=== PATIENT | female | born 1955 | race Caucasian/White ===

== ENCOUNTER 2018-07-11 11:35 | Inpatient (IN) | payer OTHER ==
[2018-07-11] MEDS ORDERED: ALBUTEROL 3 ML DEYVIAL IH PRN (14:40)
[2018-07-11] MEDS ORDERED: NS 1,000 ML IV SCH (14:40)
[2018-07-11] MEDS ORDERED: ONDANSETRON 4 MG/2 ML VIAL IVP PRN (18:17)
[2018-07-11] MEDS ORDERED: ONDANSETRON DISINTEGRATING 4 MG TAB PO PRN (18:17)
[2018-07-11] MEDS ORDERED: D50W 25 GM/50 ML SYR IVP PRN (18:28)
[2018-07-11] MEDS ORDERED: BENZONATATE 100 MG CAP PO PRN (19:55)
--- NOTE | 2018-07-11 20:03 | PDGENHP ---
History and Physical - Chief Complaint cough - History of Present Illness Please see paper H and P by Elizabeth Desir NP History Information - Allergies/Home Medication List Allergies/Adverse Reactions: acetaminophen [From Percocet] Allergy (Verified 07/11/18 17:20) Hives amoxicillin [From Augmentin] Allergy (Verified 07/11/18 17:20) Hypotension aspirin [From Percodan] Allergy (Verified 07/11/18 17:20) Hives clavulanic acid [From Augmentin] Allergy (Verified 07/11/18 17:20) Hypotension latanoprost [From Xalatan] Allergy (Verified 07/11/18 17:20) Hypotension nickel Allergy (Verified 07/11/18 17:21) Unknown oxycodone [From Percocet] Allergy (Verified 07/11/18 17:20) Hives Home Medications: Acetaminophen [Tylenol ES 500 mg (*)] 500 mg PO Q6 PRN 07/11/18 [Last Taken Unknown] Alclometasone Dipropionate 1 shannon TP DAILY PRN 07/11/18 [Last Taken Unknown] Ascorbic Acid [Vitamin C 500 mg (*)] 1,000 mg PO BID 07/11/18 [Last Taken ] Cholecalciferol Vit D3 [Vitamin D3 (*)] 1,000 units PO DAILY 07/11/18 [Last Taken 07/10/18] Exenatide Microspheres [Bydureon Pen] 2 mg SQ WE 07/11/18 [Last Taken 07/04/18] Herbals/Supplements -Info Only 1 ea PO DAILY 07/11/18 [Last Taken Unknown] Hydrochlorothiazide [HCTZ (*)] 25 mg PO DAILY 07/11/18 [Last Taken 07/10/18] Insulin Glargine,Hum.rec.anlog [Micah Elizondo] 72 unit SQ HS 07/11/18 [Last Taken 07/10/18] Insulin Lispro [humALOG LISPRO 100 units/ml (*)] 0 - 19 unit SC TIDMEAL [Last Taken 07/09/18] Ketoconazole 2% [Nizoral 2% Cream (*)] 1 shannon TP DAILY PRN 07/11/18 [Last Taken Unknown] Levothyroxine [Synthroid 50 mcg (*)] 50 mcg PO DAILY06 07/11/18 [Last Taken ] Lisinopril [Zestril 40 mg (*)] 40 mg PO HS 07/11/18 [Last Taken 07/10/18] Meloxicam 7.5 mg PO BID 07/11/18 [Last Taken 07/10/18] Metformin HCl [Metformin 1000 mg] 1,000 mg PO BID 07/11/18 [Last Taken 07/10/18] Omeprazole 20 mg PO DAILY 07/11/18 [Last Taken 07/10/18] Polymyxin B Sulfate/Tmp [Polytrim Opht Drops (*)] 1 drops RTEYE HS 07/11/18 [ Last Taken 07/10/18] Simvastatin [Zocor] 20 mg PO HS 07/11/18 [Last Taken 07/10/18] I have personally reviewed and updated: medical history, social history - Past Medical History hypertension, hyperlipidemia Additional medical history: IDDM (Dr Harden) - Family History Positive for: non-pertinent - Social History Alcohol Use: None Drug Use: None Additional social history: Review of Systems Review of Systems: Physical Exam Physical Exam: Temp Pulse Resp BP Pulse Ox 102.4 F H 104 H 19 119/76 85 L 07/11/18 11:35 07/11/18 11:35 07/11/18 11:35 07/11/18 11:35 07/11/18 11:35 Constitutional: other (ill appearing/coughing) Ears, Nose, Mouth, Throat: moist mucous membranes, hearing normal Cardiovascular: regular rate and rhythym, no murmur, rub, or gallop Respiratory: rhonchi, other (decreased BS throughout, no wheezes), No respiratory distress Gastrointestinal: normoactive bowel sounds, soft, non-tender abdomen, No guarding Neurologic: other (grossly intact/non focal) Psychiatric: interacting appropriately, not anxious, not encephalopathic Lab Data & Imaging Review 07/11/18 11:35 07/11/18 11:35 Sodium 138 mEq/L (135-145) 07/11/18 11:35 Potassium 4.6 mEq/L (3.5-5.2) 07/11/18 11:35 Chloride 103 mEq/L (97-110) 07/11/18 11:35 Carbon Dioxide 24 mEq/l (22-31) 07/11/18 11:35 Anion Gap 11 mEq/L (6-14) 07/11/18 11:35 BUN 17 mg/dL (7-23) 07/11/18 11:35 Creatinine 0.9 mg/dL (0.6-1.0) 07/11/18 11:35 Estimated GFR Not Reported 07/11/18 11:35 Glucose 119 mg/dL (70-100) H 07/11/18 11:35 POC Glucose 96 mg/dL (70-100) 07/11/18 18:30 Calcium 8.9 mg/dL (8.5-10.4) 07/11/18 11:35 Nasal Influenza A PCR FLU A DETECTED (NEGATIVE) H 07/11/18 12:39 Nasal Influenza B PCR NEGATIVE FOR FLU B (NEGATIVE) 07/11/18 12:39 Visualized and Interpreted Chest x-ray results: Yes Chest X-Ray results: no infiltrate Assessment & Plan Assessment: Influenza (Acute) -start tamiflu -symptom treatment meds ordered, nebs ordered -IVF as nausea/inadequate po intake IDDM -1/2 dose of nl nightly glargine as poor intake -holding metformin -checking BS, SSI Obesity HTN -holding diuretic -watch BPs closely Hyperlipidemia FULL CODE PCP- Dr Logan, Dr Harden DVT prophy-SCDs Dispo- obs overnt, reassess in AM Plan: Pt was seen, examined, interviewed by myself. I reviewed H and P by Mimi Desir HOST COORDINATOR, agree with findings and plan.
[2018-07-11 20:09] LABS: PLATELET COUNT 214 10^3/uL (150-400)
[2018-07-11] MEDS ORDERED: INSULIN GLARGINE HUM REC ANLOG 72 UNIT SQ SCH (21:00)
[2018-07-11] MEDS ORDERED: INSULIN GLARGINE 100 UNITS/ML UNIT SC ONE (21:00)
[2018-07-11] MEDS: INSULIN REGULAR HUMAN 100 UNIT/ML UNIT SC SCH (21:57)
[2018-07-11] MEDS: guaiFENesin 600 MG TAB.ER PO SCH (22:05)
[2018-07-11] MEDS: FAMOTIDINE 20 MG TAB PO SCH (22:05)
[2018-07-11] MEDS: IPRATROPIUM/ALBUTEROL 3 ML DEYVIAL IH SCH (22:17)
[2018-07-11] MEDS: ACETAMINOPHEN 325 MG TAB PO SCH (23:53)
[2018-07-12 04:34] LABS: PLATELET COUNT 182 10^3/uL (150-400)
[2018-07-12] MEDS: ACETAMINOPHEN 325 MG TAB PO SCH ×3 (04:58→17:36)
[2018-07-12] MEDS: IPRATROPIUM/ALBUTEROL 3 ML DEYVIAL IH SCH ×2 (05:32→11:23)
[2018-07-12] MEDS: LEVOTHYROXINE 50 MCG TAB PO SCH (06:00)
[2018-07-12] MEDS: OSELTAMIVIR PHOSPHATE 75 MG CAP PO SCH ×2 (07:42→17:36)
[2018-07-12] MEDS: INSULIN REGULAR HUMAN 100 UNIT/ML UNIT SC SCH ×4 (07:44→21:42)
[2018-07-12] MEDS ORDERED: INSULIN LISPRO 100 UNIT/ML SC SCH (08:00)
[2018-07-12] MEDS: CHOLECALCIFEROL VIT D3 1,000 UNITS TAB PO SCH (08:50)
[2018-07-12] MEDS: guaiFENesin 600 MG TAB.ER PO SCH ×2 (08:50→21:41)
[2018-07-12] MEDS: PANTOPRAZOLE SODIUM 40 MG TAB PO SCH (08:50)
[2018-07-12] MEDS: FAMOTIDINE 20 MG TAB PO SCH ×2 (08:51→21:41)
[2018-07-12] MEDS: ASCORBIC ACID 500 MG TAB PO SCH ×2 (08:51→21:41)
[2018-07-12] MEDS ORDERED: ALCLOMETASONE DIPROPIONATE TP PRN (09:00)
[2018-07-12] MEDS ORDERED: KETOCONAZOLE 2% 15 GM CREAM TP PRN (09:00)
--- NOTE | 2018-07-12 09:02 | HOSPPROG ---
Hospitalist Progress Note Assessment/Plan: # AHRF (77% on RA) - d/t influenza - cont O2 - start prednisone - Xopenex (got DUVALL with duoneb) - cont mucinex, IS, flutter valve # influenza A - start tamiflu # morbid obesity - BMI 43 # DM2 - cont insulin, follow glucs on steroids # htn - cont lisino Subjective: feels very weak; still SOB; CP with coughing; +DUVALL Objective: Vital Signs Temp Pulse Resp BP Pulse Ox 36.9 C 66 18 106/59 L 94 07/12/18 03:25 07/12/18 03:25 07/12/18 03:25 07/12/18 03:25 07/12/18 03:25 Laboratory Results 07/12/18 04:04 07/12/18 04:04 07/11/18 07/12/18 07/13/18 05:59 05:59 05:59 Intake Total 280 Balance 280 chart reviewed CXR personally reviewed - Physical Exam Constitutional: uncomfortable Cardiovascular: regular rate and rhythym, no murmur, rub, or gallop Respiratory: expiratory wheeze, inspiratory crackles, respiratory distress, rhonchi Gastrointestinal: soft, non-tender abdomen, no palpable masses, No guarding, No rebound ICD10 Worksheet Patient Problems: Problems Problem Status Onset Influenza Acute
--- NOTE | 2018-07-12 09:29 | ASMTCMCOM ---
CM Note CM Note Notes: Chart reviewed. Patient admitted with influenza . No current needs identified at this time. CM available should needs arise. Plan: Likely to dc to home independent when medically cleared fro discharge. Date Signed: 07/12/2018 09:29 AM Electronically Signed By:Christy Rodriguez RN
[2018-07-12] MEDS: ENOXAPARIN 40 MG/0.4 ML SYR SC SCH (10:29)
--- NOTE | 2018-07-12 13:46 | PDMN ---
Medical Necessity Medical necessity: MCG: Gen admission: 62 yo F presents with 2 day hx N/V/D , SOB, cough, body aches, fever, PMHX: DM2, obesity, HTN, hypothyroidism, 85 % RA, tachycardia, lungs with reduced air movement, status changed to INPT for ongoing resp distress O2 down to 77% RA, influenza A +, weak, SOB, cough, DUVALL, exp. wheezing, inspiratory crackles, rhonchi, ongoing med nec care > 2 MN needed
[2018-07-12] MEDS: LEVALBUTEROL 1.25 MG/3 ML DEYVIAL IH SCH ×3 (15:08→22:54)
[2018-07-12] MEDS ORDERED: INSULIN GLARGINE 300 UNIT/ML SQ SCH (21:00)
[2018-07-12] MEDS ORDERED: LISINOPRIL 40 MG TAB PO SCH (21:00)
[2018-07-12] MEDS ORDERED: POLYMYXIN B SULFATE/TMP 10 ML OPHT.BTL RTEYE SCH (21:00)
[2018-07-12] MEDS: predniSONE 20 MG TAB PO SCH (21:40)
[2018-07-13] MEDS: ACETAMINOPHEN 325 MG TAB PO SCH ×3 (00:22→11:59)
[2018-07-13] MEDS: LEVOTHYROXINE 50 MCG TAB PO SCH (06:30)
[2018-07-13] MEDS: INSULIN REGULAR HUMAN 100 UNIT/ML UNIT SC SCH ×2 (08:51→11:56)
[2018-07-13] MEDS: ASCORBIC ACID 500 MG TAB PO SCH (08:52)
[2018-07-13] MEDS: predniSONE 20 MG TAB PO SCH (08:53)
[2018-07-13] MEDS: CHOLECALCIFEROL VIT D3 1,000 UNITS TAB PO SCH (08:53)
[2018-07-13] MEDS: ENOXAPARIN 40 MG/0.4 ML SYR SC SCH (08:54)
[2018-07-13] MEDS: guaiFENesin 600 MG TAB.ER PO SCH (08:54)
[2018-07-13] MEDS: FAMOTIDINE 20 MG TAB PO SCH (08:54)
[2018-07-13] MEDS: PANTOPRAZOLE SODIUM 40 MG TAB PO SCH (08:54)
[2018-07-13] MEDS: OSELTAMIVIR PHOSPHATE 75 MG CAP PO SCH (08:54)
[2018-07-13] MEDS: LEVALBUTEROL 1.25 MG/3 ML DEYVIAL IH SCH (10:08)
[2018-07-13] MEDS ORDERED: LEVALBUTEROL 1.25 MG/3 ML DEYVIAL IH PRN (13:30)
--- NOTE | 2018-07-13 14:41 | PDHOMEO2F ---
Home Oxygen Face to Face Home Orders: I certify that a physician or a nurse practitioner or physician's clerical assistant has had a [id number] encounter with this patient on the date of this order due to the diagnosis listed, which relates to the primary reason the patient requires home oxygen. Alternative treatments have been tried, or considered, and deemed ineffective. It is anticipated that supplemental oxygen will result in improvement with treatment. Home oxygen qualifying diagnosis: influenza, suspected COPD SpO2 on room air (%): 85% Frequency of home oxygen needed: continuous Home oxygen liters per minute: 2 Home oxygen delivery device: nasal cannula Concentrator: Yes E-tanks for mobility and back up: Yes If ordering portable O2, is the patient mobile in the home?: Yes I certify that, based on these findings, the home oxygen is medically necessary for this patient for the following length of time. Length of time home oxygen needed: 1 month
--- NOTE | 2018-07-13 14:55 | GDS ---
[f rep st] DISCHARGE SUMMARY FINAL DIAGNOSES: 1. Acute hypoxic respiratory failure. 2. Influenza A. 3. Morbid obesity. 4. Diabetes mellitus, type 2. 5. Hypertension. HOSPITAL COURSE: A 62-year-old female admitted with acute influenza A infection. She was quite shor t of breath and hypoxic. She has been treated with Tamiflu, inhalers. She has some significant whee zing (I suspect she has some underlying COPD); however, she refused prednisone. On the day of discha rge, she is feeling much better overall. She is still hypoxic to around 85% on room air. I am going to discharge her with Tamiflu, a total of a 10-day course. I will provide her a prescription for ox ygen. I will also provide her a prescription for an albuterol inhaler. I discussed all of this with she and her , and they are both comfortable with this plan. She is otherwise discharged in s table condition to home. She has a followup with Dr. Harden, her ironing pleater, in 5 days. BILLING: I spent more than 30 minutes on the day of discharge coordinating care. /[id number]/MODL
--- NOTE | 2018-07-13 15:06 | ASMTDCNOTE ---
Case Management Discharge Discharge Order Complete? Answers: Yes Patient to Obtain Answers: via Family Medications Transportation Arranged Answers: Family/Friends Discharge Comments Notes: CM met with patient prior to discharge, will transport home and support with recommended follow up. Patient to discharge with home O2, RT is connected to patient. CM available to follow if additional CM needs arise. Date Signed: 07/13/2018 03:05 PM Electronically Signed By:Jeanette Rodriguez
[2018-07-13 15:24] VITALS: BP 116/58
[2018-07-13] MEDS ORDERED: ENOXAPARIN 40 MG/0.4 ML SYR SC SCH (21:00)
== END 2018-07-13 17:07 | disposition home or self-care (01) | DRG 193 ==
LOC: F1N 14:05 → OBSVTOIN 07-12 09:03
PROVIDERS: ADMIT Family Medicine; ATTEND Student in an Organized Health Care Education/Training Program
DX: J10.1 Influenza due to other identified influenza virus with other respiratory manifestations (principal); J96.01 Acute respiratory failure with hypoxia; E11.9 Type 2 diabetes mellitus without complications; E66.01 Morbid (severe) obesity due to excess calories; Z68.41 Body mass index [BMI] 40.0-44.9, adult; I10 Essential (primary) hypertension; E78.5 Hyperlipidemia, unspecified; E03.9 Hypothyroidism, unspecified; Z79.84 Long term (current) use of oral hypoglycemic drugs; Z79.4 Long term (current) use of insulin
CPT/HCPCS: G0378; J1650; J1815; J7512; J7613